=== PATIENT | male | born 1950 | race African-American/Black ===

== ENCOUNTER 2016-05-02 07:57 | Outpatient (CLI) | payer MEDICARE, MEDICAID ==
[2016-05-02 08:35] LABS: Hematocrit 38.7 % (42.0-52.0); Mean Platelet Volume 6.3 fL (7.4-10.4); Red Blood Cell (RBC) Count 4.17 mill/uL (4.70-6.10); White Blood Cell (WBC) Count 4.2 thou/uL (4.8-10.8)
[2016-05-02 08:42] LABS: ALT (SGPT) 28 U/L (0-55); AST (SGOT) 28 U/L (5-34); Alkaline Phosphatase 160 U/L (40-150); Anion Gap 11 mmol/L (10-20); BUN (Urea Nitrogen) 18 mg/dL (8.4-25.7); Bilirubin, Total 0.4 mg/dL (0.2-1.2); Calc. Creatinine Clearance 0 mL/min (70-130); Calcium 9.2 mg/dL (7.8-10.44); Carbon Dioxide 25 mmol/L (23-31); Chloride 109 mmol/L (98-107); Estimated GFR-MDRD 89; Protein, Total 7.9 g/dL (5.8-8.1)
== END 2016-05-02 07:58 | disposition home or self-care (01) ==
LOC: BURLAB 07:57
PROVIDERS: ATTEND Physician Assistant Medical
DX: B18.2 Chronic viral hepatitis C (principal)
CPT/HCPCS: 36415; 80053; 85027; 87522

== ENCOUNTER 2016-06-19 11:07 | Outpatient (CLI) | payer MEDICARE, MEDICAID ==
[2016-06-19 11:45] LABS: Hemoglobin 14.3 g/dL (14.0-18.0); Mean Corpuscular HGB CONC 33.3 g/dL (32.0-36.0); Mean Platelet Volume 6.4 fL (7.4-10.4); Platelet Count 188 thou/uL (130-400); RBC Distribution Width 13.5 % (11.5-14.5); Red Blood Cell (RBC) Count 4.47 mill/uL (4.70-6.10); White Blood Cell (WBC) Count 8.2 thou/uL (4.8-10.8)
[2016-06-19 12:01] LABS: ALT (SGPT) 16 U/L (0-55); AST (SGOT) 19 U/L (5-34); Alkaline Phosphatase 93 U/L (40-150); Anion Gap 13 mmol/L (10-20); BUN (Urea Nitrogen) 20 mg/dL (8.4-25.7); Bilirubin, Total 0.5 mg/dL (0.2-1.2); Calc. Creatinine Clearance 0 mL/min (70-130); Calcium 9.3 mg/dL (7.8-10.44); Carbon Dioxide 25 mmol/L (23-31); Chloride 105 mmol/L (98-107); Estimated GFR-MDRD 73; Glucose 94 mg/dL (80-115); Potassium 3.7 mmol/L (3.5-5.1); Sodium 139 mmol/L (136-145)
== END 2016-06-19 11:08 | disposition home or self-care (01) ==
LOC: BURLAB 11:07
PROVIDERS: ATTEND Physician Assistant Medical
DX: B18.2 Chronic viral hepatitis C (principal)
CPT/HCPCS: 36415; 80053; 82105; 85027; 87522

== ENCOUNTER 2017-11-27 09:09 | Outpatient (CLI) | payer MEDICARE, MEDICAID ==
--- NOTE | 2017-11-27 10:42 | RAD ---
CERVICAL SPINE 6 VIEWS: Date: 11/27/17 HISTORY: Neck pain. Upper extremity numbness and neck pain. FINDINGS: Moderate degenerative changes of the cervical spine. Loss of disc space is present at C3-4, C4-5, C5- 6, and C6-7. There is anterior subluxation at C7-T1 with loss of disc space. Moderate osteophytes are seen throughout the cervical spine and there is evidence of prominent facet hypertrophy throughout. There is foraminal encroachment at all levels below C3 on oblique views due to facet and uncinate hyp ertrophy. IMPRESSION: Moderate degenerative changes of cervical spine as described. Mild anterolisthesis at C7-T1. POS: [facility]
--- NOTE | 2017-11-27 10:44 | RAD ---
RIGHT SHOULDER 3 VIEWS: Date: 11/27/17 HISTORY: Right shoulder pain. FINDINGS: Degenerative changes are present. Mild spurring from the humeral head. No fracture or dislocation. AC joint is normally aligned. IMPRESSION: Mild degenerative changes right shoulder. No acute process. POS: [facility]
== END 2017-11-27 09:10 | disposition home or self-care (01) ==
LOC: BURRAD 09:09
PROVIDERS: ATTEND Family Medicine
DX: M25.511 Pain in right shoulder (principal); R20.9 Unspecified disturbances of skin sensation; M19.011 Primary osteoarthritis, right shoulder; M47.892 Other spondylosis, cervical region; M43.12 Spondylolisthesis, cervical region
CPT/HCPCS: 72050